=== PATIENT | male | born 1990 | race Two or more races ===

== ENCOUNTER 2016-08-21 00:57 | Emergency (ER) | payer SELFPAY ==
[~2016-08-21] VITALS: Ht 170.2 cm; Wt 97.5 kg
[2016-08-21 01:20] VITALS: BP 115/67
== END 2016-08-21 02:30 | disposition home or self-care (01) ==
LOC: ER 00:59 → EDBD 00:59 → ER 02:30
DX: F41.9 Anxiety disorder, unspecified (principal); F32.9 Major depressive disorder, single episode, unspecified; Z88.2 Allergy status to sulfonamides; Z88.6 Allergy status to analgesic agent; Z88.8 Allergy status to other drugs, medicaments and biological substances
CPT/HCPCS: 71010-TC; A4606; Z7610